=== PATIENT | male | born 1950 | race Caucasian/White ===

== ENCOUNTER 2018-12-12 00:11 | Emergency (ER) | payer SELFPAY | END 2018-12-12 03:29 | disposition left against medical advice (07) | LOC: FTE 00:11 | DX: Z53.21 Procedure and treatment not carried out due to patient leaving prior to being seen by health care provider (principal) ==

== ENCOUNTER 2018-12-12 05:22 | Emergency (ER) | payer MEDICARE, BC ==
[2018-12-12] MEDS: KETOROLAC 30 MG INJ IM (07:04)
== END 2018-12-12 08:14 | disposition home or self-care (01) ==
LOC: E/R 05:22
DX: R07.89 Other chest pain (principal); I10 Essential (primary) hypertension
CPT/HCPCS: 71045; 93005; 96372; 99284-25